=== PATIENT | male | born 1975 | race Hispanic/Latino ===

== ENCOUNTER 2023-01-09 08:04 | Emergency (ER) | payer SELFPAY ==
[2023-01-09] MEDS ORDERED: Ketorolac Tromethamine 30 MG/ML VIAL ONE (08:55)
[2023-01-09 09:53] LABS: SARS-CoV-2 NAA Rapid Test Not Detected (NotDetected)
[2023-01-09] MEDS ORDERED: Dexamethasone 10 MG/ML VIAL ONE (11:11)
== END 2023-01-09 11:12 | disposition home or self-care (01) ==
LOC: CSHERS 08:04
DX: B34.9 Viral infection, unspecified (principal); F17.210 Nicotine dependence, cigarettes, uncomplicated; Z20.822 Contact with and (suspected) exposure to COVID-19
CPT/HCPCS: 96372; 99283; J1100; J1885